=== PATIENT | female | born 1950 ===

== ENCOUNTER 2019-01-27 07:31 | Inpatient (IN) | payer MEDICARE, BC ==
--- NOTE | 2019-01-25 17:30 | Pre-op HX & Phy Repo 2 SIG ---
DATE OF ADMISSION: 01/27/2019 DATE OF ENDOSCOPY: 01/27/2019 HISTORY OF PRESENT ILLNESS: The patient is a 68-year-old female in overall good health, who has had persistent bleeding when intubating her Gibson continent ileostomy pouch. The patient has a past history of ulcerative colitis. She underwent abdominal colectomy with Simran ileostomy in 1969 and then in 1991, underwent abdominoperineal resection with creation of a Gibson continent intestinal reservoir type of continent ileostomy. She uses a 30-Yakut Medena catheter to intubate and catheterizes her pouch two to three times per day to evacuate stool and gas. She does not need to intubate at night. She has no difficulty intubating and no incontinence. Since September of 2018, she has had bleeding usually bright red from the pouch with every intubation, sometimes mixed in with stool and sometimes just some blood in the catheter or on the outside of the catheter. She has also had some prior episodes. The patient underwent upper GI endoscopy on 01/11/2019 in her home area in [place] and the stomach and duodenum were normal. 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 She is scheduled to undergo endoscopy of her Gibson continent ileostomy pouch. When she has pouchitis, she has cramps and watery output, which has been present intermittently lately. The patient had some labs on 01/20/2019 revealing hemoglobin 11.3 and BUN slightly elevated at 19. PAST MEDICAL HISTORY/MEDICATIONS: Losartan for hypertension. ALLERGIES: Sulfa. 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 See complete list at the end of this dictation. Also, she has had cosmetic surgery. PHYSICAL EXAMINATION: GENERAL: The patient is 4 feet 11 inches, 107 pounds. [place] and will be examined upon arrival and dictated separately. IMPRESSION: 1. Bleeding from Gibson continent intestinal reservoir pouch with history of pouchitis and normal upper GI endoscopy 2. History of ulcerative colitis. 3. Status post multiple abdominal operations. 3.1. Abdominal colectomy with Simran ileostomy in 1969. 3.2. Right nephrectomy in 1984. 3.3. Gibson continent intestinal reservoir continent ileostomy and abdominoperineal proctectomy in 1991. 4. Hypertension. PLAN: I have had a full discussion with the patient regarding the nature of her condition and the nature of pouch endoscopy, which does not require anesthesia or sedation. She understands and agrees to proceed. Earl Terry M.D. DR: ELSI JOB#: [id number] CC: JETT
[~2019-01-27] VITALS: Ht 149.9 cm; Wt 48.5 kg
[2019-01-27 08:21] VITALS: BP 160/91
[2019-01-27 08:34] LABS: BASOPHILS % (AUTO) 2.1 % (0.0-2.0); HEMATOCRIT 35.5 % (37.0-47.0); LYMPHOCYTES % (AUTO) 35.1 % (20.0-45.0); MEAN CORPUSCULAR VOLUME 77 FL (80-99); MONOCYTES % (AUTO) 7.2 % (1.0-10.0); NEUTROPHILS % (AUTO) 54.7 % (45.0-75.0); PLATELET COUNT 341 K/UL (150-450); RED BLOOD COUNT 4.61 M/UL (4.20-5.40); RED CELL DISTRIBUTION WIDTH 12.1 % (11.6-14.8); WHITE BLOOD COUNT 4.7 K/UL (4.8-10.8)
[2019-01-27 08:45] LABS: ANION GAP 7 mmol/L (5-15); BLOOD UREA NITROGEN 14 mg/dL (7-18); CALCIUM 9.8 MG/DL (8.5-10.1); CARBON DIOXIDE 26 MMOL/L (21-32); CHLORIDE 107 MMOL/L (98-107); CREATININE 1.2 MG/DL (0.55-1.30); POTASSIUM 4.1 MMOL/L (3.5-5.1); SODIUM 140 MMOL/L (136-145)
[2019-01-27] MEDS ORDERED: losartan PO (10:01)
[2019-01-27] MEDS ORDERED: PRILOSEC OTC20 MG ORAL (10:01)
--- NOTE | 2019-01-27 11:36 | Pre-Procedure Note/Attestation ---
Pre-Procedure Note/Attestation Complete Prior to Procedure Planned Procedure: not applicable Procedure Narrative: Gibson continent ileostomy pouch endoscopy Indications for Procedure Pre-Operative Diagnosis: Gibson continent ileostomy bleeding Attestation I attest that I discussed the nature of the procedure; its benefits; risks and complications; and alternatives (and the risks and benefits of such alternatives ), prior to the procedure, with the patient (or the patient's legal artist's representative). I attest that, if there was a reasonable possibility of needing a blood transfusion, the patient (or the patient's legal artist's representative) was given the [facility] standardized written summary, pursuant to the [place] Blood Safety Act ([place] Health and Safety Code # 1645, as amended). I attest that I re-evaluated the patient just prior to the surgery and that there has been no change in the patient's H&P, except as documented below: none Earl Terry MD January 27, 2019 11:36
[2019-01-27 12:40] VITALS: BP 145/81
--- NOTE | 2019-01-27 12:42 | Brief Operative Note ---
Immediate Post Operative Note Operative Note Pre-op Diagnosis: Gibson continent ileostomy bleeding Procedure: Gibson pouch endoscopy Post-op Diagnosis: same Findings: consistent w/pre-op dx studies, other - superficial ulcerations in pouch along old suture line Surgeon: vargas Anesthesia: other - none Specimen: none Complications: none Condition: stable Fluids: none Estimated Blood Loss: none Drains: other - 28 Fr Araiza to Gibson Pouch Implant(s) used?: No Earl Terry MD January 27, 2019 12:42
--- NOTE | 2019-01-27 12:45 | NUR ---
HEPLOCK WAS STARTED BY MARIO ROGERS RN. NO S/S OF INFILTRATION.
--- NOTE | 2019-01-27 12:47 | General Progress Note ---
Progress Note Progress Note Gibson continent ileostomy pouch endoscopy reveals superficial ulcerations along old suture line. Hgb 12.0 (was 11.3 in [place] one week ago) States that 7-8 years ago she required 3 units transfusion but no work up was done to determine source Recent EGD negative in [place] (reports in chart) Imp. GI bleeding, likely from Gibson Pouch R/O bleeding from ileum proximal to pouch (unable to visualize today) Plan: Admit Dr. Malloy to consult re possible f/u endoscopy including push enteroscopy from Gibson Pouch Maintain continuous decompression/drainage of Gibson pouch with indwelling catheter to continuous drainage f/u labs in Earl Ricci MD January 27, 2019 12:47
--- NOTE | 2019-01-27 13:50 | NUR ---
PT TRANSFERRED TO [facility]. MACIEJ SOTO RN GAVE REPORT TO JOANN SCANLON RN. VS AND CONDITION STABLE. DENIES PAIN.
--- NOTE | 2019-01-27 14:00 | NUR ---
NURSE NOTES: PATIENT RECEIVED FROM GI LAB VIA [facility]. AOX4. RIGHT ILEOSTOMY PATENT AND CONNECTED TO DRAINAGE DEVICE. NO S/S BLEEDING. ASSISTED PATIENT TO STAND TO GET INTO BED. TOLERATED WELL. NO DIZZINESS/PAIN NOTED.PATIENT ORIENTED TO ROOM. BED IN LOW AND LOCKED POSITION, CALL LIGHT WITHIN REACH. BEDSIDE REPORT AND PHONE REPORT RECEIVED FROM VIRGILIO. PERSONAL BELONGINGS REVIEWED AND SIGNED WITH TRANSFERRING NURSE. DISCUSSED PLAN OF CARE FOR THE REMAINDER OF THE DAY. QUESTIONS ANSWERED, NEEDS MET. ORDERS RECEIVED.
[2019-01-27] MEDS ORDERED: D5 1/2NS w/KCl 20mEq 1,000 ML IV SCH (16:00)
[2019-01-27] MEDS ORDERED: Magnesium Citrate Liq Btl ORAL ONE (16:00)
--- NOTE | 2019-01-27 16:50 | NUR ---
NURSE NOTES: ORIENTED PATIENT TO NURSING UNIT. AMBULATING AROUND UNIT.GAIT STEADY. DENIES PAIN/NAUSEA/BLOATING. HAS BEEN TOLERATING CLEAR LIQUIDS.
--- NOTE | 2019-01-27 17:30 | NUR ---
NURSE NOTES: PATIENT SEEN BY DR. PRATT. NEW ORDERS RECEIVED.CONSENT OBTAINED. PATIENT INFORMED OF NPO AFTER MN STATUS. VERBALIZED UNDERSTANDING.
--- NOTE | 2019-01-27 17:45 | Procedure Note ---
DATE OF PROCEDURE: 01/27/2019 ENDOSCOPY PROCEDURE REPORT: ENDOSCOPIST: Earl Terry M.D. ANESTHESIA: None. SEDATION: None. PRE-ENDOSCOPY DIAGNOSES: 1. GI bleeding, likely from Gibson continent ileostomy pouch with recent negative upper GI endoscopy. 2. History of ulcerative colitis. 3. Status post multiple abdominal operations. 3.1. Abdominal colectomy with Simran ileostomy in 1969. 3.2. Right nephrectomy for atrophy in 1984. 3.3. Gibson continent ileostomy and abdominoperineal proctectomy in 1991. POST-ENDOSCOPY DIAGNOSES: 1. GI bleeding, likely from Gibson continent ileostomy pouch with recent negative upper GI endoscopy. 2. History of ulcerative colitis. 3. Status post multiple abdominal operations. 3.1. Abdominal colectomy with Simran ileostomy in 1969. 3.2. Right nephrectomy for atrophy in 1984. 3.3. Gibson continent ileostomy and abdominoperineal proctectomy in 1991. ENDOSCOPY PERFORMED: Gibson continent ileostomy pouch endoscopy. FINDINGS: Localized superficial ulcerations along an old suture line within the pouch. Otherwise, the entire mucosa of the pouch was normal. Retroflex views revealed a circumferentially well-formed nipple valve. Due to torquing and angulation, I could not enter the proximal ileum. DESCRIPTION OF PROCEDURE: The patient was taken to the GI lab, positioned supine. Examination reveals the abdomen to be soft with a long midline scar from xiphoid to pubis and the stoma of her Gibson pouch low in the right lower quadrant with a transverse right-sided scar from prior ileostomy. There is no evidence of abdominal wall hernia. Without any sedation or anesthesia given or required, I first inserted a 28-Canadian Araiza catheter into the pouch, which required a bit of manipulation to get fully into the pouch to irrigate it clear. Then using a GIF-P140 endoscope, I measured the distance from the stoma orifice to the tip of the nipple valve as approximately 9 cm just slightly redundant. The pouch is entered and is quite distensible. The mucosa is completely normal throughout except for superficial ulcerations along an old suture line. Retroflexed views revealed a well-formed nipple valve. Withdrawal views confirmed the above findings. After the procedure, I again inserted a 28-Canadian Araiza catheter into her pouch, secured it to the skin with tape, and connected it to a gravity drainage bag for continuous decompression and observation of any ongoing bleeding. The patient will be admitted for further evaluation and workup. Earl Terry M.D. DR: AMANDA JOB#: [id number] CC: JETT
[2019-01-27] MEDS ORDERED: NS Irrig 1000ml ONE (18:43)
--- NOTE | 2019-01-27 19:29 | NUR ---
HAND-OFF: Report given to STEVE MADRIGAL.
--- NOTE | 2019-01-27 19:30 | NUR ---
NURSE NOTES: Received report from ROHAN Saenz. Patient sitting up in bed, no distress noted. Right ileostomy patent, attached to drainage bag. IV intact on R hand, infusing well, D5 1/2NS with 20 mEq potassium at 75 cc/hr. Drinking clear liquids, tolerating well. Aware of NPO status after midnight. Will continue to monitor.
[2019-01-27 20:00] VITALS: BP 163/83
[2019-01-27] MEDS: Losartan 50mg tab ORAL SCH (20:26)
--- NOTE | 2019-01-27 20:40 | NUR ---
NURSE NOTES: Patient complain of pain at IV site. Site looks intact, patent. When decreasing IV rate pain decreases and upon flushing with NS pain subsides. Communicated with charge nurse. Noted lab result, potassium 4.1. Communicated with Dr Terry regarding IVF. See new orders received. Also notified last BP 163/83, scheduled BP med was given and noted no PRN BP meds. No further orders regarding BP at this time.
--- NOTE | 2019-01-27 21:30 | Consultation ---
DATE OF CONSULTATION: 01/27/2019 NOTE: INCOMPLETE DICTATION CHIEF COMPLAINT: Gastrointestinal bleeding. HISTORY OF PRESENT ILLNESS: The patient is a very pleasant 68-year-old female with past medical history history of ulcerative colitis for over 20 years, had surgery many years ago with total colectomy. Alexx Malloy M.D. DR: David JOB#: [id number] CC:
[2019-01-27] MEDS: D5 1/2NS 1,000 ML IV SCH (22:00)
--- NOTE | 2019-01-27 22:00 | Consultation ---
DATE OF CONSULTATION: 01/27/2019 CHIEF COMPLAINT: Gastrointestinal bleeding. HISTORY OF PRESENT ILLNESS: This is a very pleasant 68-year-old female with past medical history of ulcerative colitis for over 20 years ago had total colectomy with ileostomy bag and recently had a pouch placed. She was admitted to the hospital for evaluation of bleeding, had pouchoscopy done by Dr. Earl Terry showed evidence of some ulceration at the anastomosis but not enough to explain the bleeding so GI consult was requested for evaluation for possible further endoscopy. Apparently, the patient had a recent endoscopy done in this month at another facility did not show much. PAST MEDICAL HISTORY: 1. Ulcerative colitis. 2. History of hypertension. 3. History of renal disease requiring right nephrectomy. ALLERGIES: Sulfa. MEDICATIONS: Please see medication reconciliation list. PAST SURGICAL HISTORY: Total colectomy, bilateral breast implants, right nephrectomy. REVIEW OF SYSTEMS: A 10-point review of systems was performed and pertinent positives in HPI. PHYSICAL EXAMINATION: VITAL SIGNS: Temperature is 97.6, pulse 64, respirations 20, and blood pressure is 145/81. HEENT: Normocephalic and atraumatic. Sclerae anicteric. NECK: Supple. No evidence of lymphadenopathy. CARDIOVASCULAR: Regular rate and rhythm. Plus S1 and S2. No obvious murmur. LUNGS: Clear to auscultation bilaterally. ABDOMEN: Positive bowel sounds. Soft and nontender. No rebound. No guarding. No peritoneal sign. EXTREMITIES: No cyanosis, no clubbing, no edema. LABORATORY AND DIAGNOSTIC DATA: White count is 4.7, hemoglobin 12, platelet count is 341. Chem-7, sodium 140, potassium 4.1, BUN is 14, creatinine 1.2. ASSESSMENT AND PLAN: This is a very pleasant 68-year-old female with ulcerative colitis with now bleeding in the pouch. Plan is to do pouchoscopy and ileoscopy tomorrow. The procedure was explained to the patient. The risks and benefits of anesthesia and procedure was explained to the patient, she agreed so we will plan for tomorrow. I want to thank, Dr. Earl Terry for this kind referral. Alexx Malloy M.D. DR: David JOB#: [id number] CC: Earl Terry M.D.; Fax#: [phone]
--- NOTE | 2019-01-27 22:00 | NUR ---
NURSE NOTES: Pt c/o pain at L hand IV site. At this time running D5 1/2 NS at 75 cc/hr. IV DC'd. Restarted IV on R hand, gauge #22. Patient tolerated well.
[2019-01-27] MEDS: LORazepam 1mg tab ORAL PRN (22:11)
--- NOTE | 2019-01-27 23:04 | NUR ---
NURSE NOTES: Patient asleep, respirations even and unlabored.
[2019-01-28] VITALS (13 sets, daily range): BP systolic 111–167; BP diastolic 67–91
[2019-01-28 05:41] LABS: BASOPHILS % (AUTO) 1.6 % (0.0-2.0); EOSINOPHILS % (AUTO) 0.4 % (0.0-3.0); HEMATOCRIT 35.5 % (37.0-47.0); HEMOGLOBIN 11.7 G/DL (12.0-16.0); MEAN CORPUSCULAR VOLUME 78 FL (80-99); MONOCYTES % (AUTO) 5.7 % (1.0-10.0); NEUTROPHILS % (AUTO) 54.3 % (45.0-75.0); PLATELET COUNT 333 K/UL (150-450); RED BLOOD COUNT 4.55 M/UL (4.20-5.40); RED CELL DISTRIBUTION WIDTH 12.3 % (11.6-14.8); WHITE BLOOD COUNT 4.5 K/UL (4.8-10.8)
[2019-01-28 07:01] LABS: % IRON SATURATION 29 % (15-50); IRON 92 ug/dL (50-175); TOTAL IRON BINDING CAPACITY 314 ug/dL (250-450)
[2019-01-28 07:04] LABS: ALANINE AMINOTRANSFERASE 26 U/L (12-78); ALBUMIN 3.4 G/DL (3.4-5.0); ALBUMIN/GLOBULIN RATIO 1.2 (1.0-2.7); ALKALINE PHOSPHATASE 61 U/L (46-116); ANION GAP 10 mmol/L (5-15); ASPARTATE AMINO TRANSFERASE 33 U/L (15-37); BILIRUBIN,TOTAL 0.8 MG/DL (0.2-1.0); BLOOD UREA NITROGEN 11 mg/dL (7-18); CARBON DIOXIDE 22 MMOL/L (21-32); CHLORIDE 103 MMOL/L (98-107); CREATININE 0.9 MG/DL (0.55-1.30); FERRITIN 19 NG/ML (8-388); POTASSIUM 3.9 MMOL/L (3.5-5.1); SODIUM 135 MMOL/L (136-145)
--- NOTE | 2019-01-28 07:30 | NUR ---
NURSE NOTES: Patient is in bed awake and able to verbalize needs. Patient is stable. Denies pain at this time. Ileostomy draining into bag, patent. Patient is aware of procedure scheduled today. Patient is in bed in locked and lowest position with call light within reach. Will continue to monitor.
[2019-01-28] MEDS: D5 1/2NS 1,000 ML IV SCH ×2 (10:20→13:35)
--- NOTE | 2019-01-28 10:41 | Anethesia Preoperative Eval ---
Anesthesia Pre-op PMH/ROS General Date of Evaluation: January 28, 2019 Time of Evaluation: 11:29 Anesthesiologist: Alexandre ASA Score: ASA 2 Mallampati Score Class I : Soft palate, uvula, fauces, pillars visible Class II: Soft palate, uvula, fauces visible Class III: Soft palate, base of uvula visible Class IV: Only hard plate visible Mallampati Classification: Class I Surgeon: Gama Diagnosis: bleeding in ileostomy pouch Surgical Procedure: Enteroscopy Anesthesia History: none Family History: no anesthesia problems Allergies: Coded Allergies: CODEINE (Verified Allergy, Intermediate, 01/27/19) SEVERE ABDOMINAL PAIN SULFA (SULFONAMIDE ANTIBIOTICS) (Verified Allergy, Unknown, 01/26/19) Medications: see eMAR Patient NPO?: Yes NPO Date: January 27, 2019 NPO Time: 23:00 Past Medical History Cardiovascular: Reports: HTN Pulmonary: Denies: asthma, COPD, ALYSSA, other Gastrointestinal/Genitourinary: Reports: other - ulcerative colitis Neurologic/Psychiatric: Denies: dementia, CVA, depression/anxiety, TIA, other Endocrine: Reports: other - right kidney arthopy HEENT: Denies: cataract (L), cataract (R), glaucoma, LUMBEE (L), LUMBEE (R), other Hematology/Immune: Reports: anemia Musculoskeletal/Integumentary: 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 Exam Physician Exam Last Vital Signs Date Time Temp Pulse Resp B/P (MAP) Pulse Ox O2 Delivery O2 Flow Rate FiO2 01/28/19 08:00 97.2 74 18 152/85 (107) 98 01/27/19 21:00 Room Air Constitutional: NAD Neurologic: CN 2-12 intact Cardiovascular: RRR Respiratory: CTA Gastrointestinal: S/NT/ND Airway Exam Mallampati Score: Class I MO: full ROM: full Teeth: intact - crowns Dentures: no upper, no lower Anesthesia Pre-op A/P Labs Hematology Test 01/28/19 05:04 White Blood Count 4.5 K/UL (4.8-10.8) L Red Blood Count 4.55 M/UL (4.20-5.40) Hemoglobin 11.7 G/DL (12.0-16.0) L Hematocrit 35.5 % (37.0-47.0) L Mean Corpuscular Volume 78 FL (80-99) L Mean Corpuscular Hemoglobin 25.7 PG (27.0-31.0) L Mean Corpuscular Hemoglobin Concent 33.0 G/DL (32.0-36.0) Red Cell Distribution Width 12.3 % (11.6-14.8) Platelet Count 333 K/UL (150-450) Mean Platelet Volume 5.8 FL (6.5-10.1) L Neutrophils (%) (Auto) 54.3 % (45.0-75.0) Lymphocytes (%) (Auto) 38.0 % (20.0-45.0) Monocytes (%) (Auto) 5.7 % (1.0-10.0) Eosinophils (%) (Auto) 0.4 % (0.0-3.0) Basophils (%) (Auto) 1.6 % (0.0-2.0) Chemistry Test 01/28/19 05:04 Sodium Level 135 MMOL/L (136-145) L Potassium Level 3.9 MMOL/L (3.5-5.1) Chloride Level 103 MMOL/L (98-107) Carbon Dioxide Level 22 MMOL/L (21-32) Anion Gap 10 mmol/L (5-15) Blood Urea Nitrogen 11 mg/dL (7-18) Creatinine 0.9 MG/DL (0.55-1.30) Estimat Glomerular Filtration Rate > 60 mL/min (>60) Glucose Level 105 MG/DL (74-106) Calcium Level 9.0 MG/DL (8.5-10.1) Iron Level 92 ug/dL (50-175) Total Iron Binding Capacity 314 ug/dL (250-450) Percent Iron Saturation 29 % (15-50) Unsaturated Iron Binding 222 ug/dL (112-346) Ferritin 19 NG/ML (8-388) Total Bilirubin 0.8 MG/DL (0.2-1.0) Aspartate Amino Transf (AST/SGOT) 33 U/L (15-37) Alanine Aminotransferase (ALT/SGPT) 26 U/L (12-78) Alkaline Phosphatase 61 U/L (46-116) Total Protein 6.2 G/DL (6.4-8.2) L Albumin 3.4 G/DL (3.4-5.0) Globulin 2.8 g/dL Albumin/Globulin Ratio 1.2 (1.0-2.7) Vitamin B12 Level 320 PG/ML (193-986) Folate 48.7 NG/ML (8.6-58.9) Studies Pre-op Studies: EKG Risk Assessment & Plan Assessment: A&Ox4 Plan: MAC Status Change Before Surgery: No Pre-Antibiotics Given Within 1 Hr of Incision: No Tessa Schroeder CRNA January 28, 2019 10:41
--- NOTE | 2019-01-28 10:42 | Immediate Post-Op Evaluation ---
Immediate Post-Op Evalulation Immediate Post-Op Evalulation Procedure: Enteroscopy via pouch Date of Evaluation: January 28, 2019 Time of Evaluation: 12:10 IV Fluids: NSS 400 ml Blood Products: 0 Estimated Blood Loss: 0 Urinary Output: 0 Blood Pressure Systolic: 145 Blood Pressure Diastolic: 91 Pulse Rate: 67 Respiratory Rate: 18 O2 Sat by Pulse Oximetry: 99 Temperature (Fahrenheit): 97.9 Pain Score (1-10): 5 Nausea: No Vomiting: No Complications none pt complain of 5/10 abdominal gas pain. pain medication ordered and Dr. Malloy notified and will assess patient. Patient Status: awake, reacts, patent, none Hydration Status: adequate Given Within 1 Hr of Incision: No - none per surgeon Tessa Schroeder CRNA January 28, 2019 10:42
[2019-01-28] MEDS ORDERED: Midazolam 2mg/2ml Inj ONE (11:06)
--- NOTE | 2019-01-28 11:15 | NUR ---
NURSE NOTES: Taken downstairs to GI lab via nicole.
--- NOTE | 2019-01-28 11:18 | NUR ---
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
[2019-01-28] MEDS ORDERED: Propofol 200mg/20ml IV ONE (11:30)
--- NOTE | 2019-01-28 11:34 | 48 Hour Post Anesthesia Eval ---
Post Anesthesia Evaluation Procedure: Enteroscopy Date of Evaluation: January 28, 2019 Time of Evaluation: 13:12 Blood Pressure Systolic: 166 0: 84 Pulse Rate: 66 Respiratory Rate: 16 Temperature (Fahrenheit): 97.9 O2 Sat by Pulse Oximetry: 99 Airway: patent Nausea: No Vomiting: No Pain Intensity: 2 Hydration Status: adequate Cardiopulmonary Status: WNL Mental Status/LOC: patient returned to baseline Follow-up care needed: patient intructions given Tessa Schroeder CRNA January 28, 2019 11:34
[2019-01-28] MEDS ORDERED: NS 500ML IVPB ONE (11:35)
--- NOTE | 2019-01-28 11:40 | Pre-Procedure Note/Attestation ---
Pre-Procedure Note/Attestation Complete Prior to Procedure Planned Procedure: not applicable Procedure Narrative: ileoscopy Indications for Procedure Pre-Operative Diagnosis: gib Attestation I attest that I discussed the nature of the procedure; its benefits; risks and complications; and alternatives (and the risks and benefits of such alternatives ), prior to the procedure, with the patient (or the patient's legal medical office representative). I attest that, if there was a reasonable possibility of needing a blood transfusion, the patient (or the patient's legal medical office representative) was given the [facility] standardized written summary, pursuant to the [place] Blood Safety Act ([place] Health and Safety Code # 1645, as amended). I attest that I re-evaluated the patient just prior to the surgery and that there has been no change in the patient's H&P, except as documented below: Alexx Malloy MD January 28, 2019 11:40
--- NOTE | 2019-01-28 12:19 | Endoscopy Procedure Note ---
Endoscopy Procedure Note General Indication for Procedure: gib Procedures Performed: other - enteroscopy Operative Findings/Diagnosis: min bleeding at suture site Specimen: yes Pt Tolerated Procedure Well: Yes Estimated Blood Loss: none Anesthesia Anesthesiologist: kris Anesthesia: MAC Inserted Devices Implant(s) used?: No GI Core Measures 50 yrs or older w/o bx or poly: Not Applicable 10yrs. F/U recommended: Not Applicable Alexx Malloy MD January 28, 2019 12:19
[2019-01-28] MEDS ORDERED: fentaNYL 100 mcg/2 mL IV PRN (12:30)
--- NOTE | 2019-01-28 12:45 | NUR ---
NURSE NOTES: Spoke with Dr.M. Malloy regarding abdominal distension status post enteroscopy. Patient is in no acute distress, only concerned regarding the distension. Patient advised to ambulate and irrigate the pouch to see if this alleviates the discomfort. No new orders received from Dr. Malloy. Discomfort level is tolerable. Drainage sargent position was verified by GI, RN Iftikhar Murguia. Will continue to monitor patient.
--- NOTE | 2019-01-28 13:05 | NUR ---
NURSE NOTES: Patient arrived on unit. Assisted to bed without incident. Stable. Complains of abdominal pain, will encourage ambulation and flush ileo as ordered. Patient encouraged to use call light for assistance, verbalized understanding. Will continue to monitor.
--- NOTE | 2019-01-28 13:30 | NUR ---
NURSE NOTES: Patient had an accident on the floor on the way to the restroom. Unable to measure urine output at this time. All safety measures provided.
--- NOTE | 2019-01-28 13:44 | General Progress Note ---
Progress Note Progress Note AVSS Underwent endosopy up to 85cm proximal to BCIR pouch by Dr. Malloy - no abnormalities BCIR ileo catheter repositioned and flushed evacuating air and some old blood WBC 4500 Hgb 11.7 BUN 11 Cr 0.9 Albumin 3.4 Iron 92 (50-175) Ferritin 19 (8-388) B12 320 (193-986) Folate 48.7 Imp.GI bleeding due to localized ulcerations in Gibson continent ileostomy pouch, but no diffuse pouchitis Plan; Mesalamine 60cc flush into Gibson Pouch qhs starting tonight Continue IV fluids tonight f/u labs in AM BCIR low residue diet Start self-intubations of Gibson pouch in AM Venofer and B12 replacement Earl Terry MD January 28, 2019 13:44
[2019-01-28] MEDS ORDERED: Vitamin B12 1000mcg/ml Inj IM SCH (13:45)
--- NOTE | 2019-01-28 19:27 | NUR ---
HAND-OFF: Report given to Tono MADRIGAL. Patient is stable.
--- NOTE | 2019-01-28 19:45 | NUR ---
NURSE NOTES: Patient ambulating in the hallway. No signs of pain or bleeding noted. Dressing is dry and intact. IV site flushed. Ileo flushed per MD's order. No signs of distress noted. Needs attended. In stable condition.
--- NOTE | 2019-01-28 20:15 | Procedure Note ---
DATE OF PROCEDURE: 01/28/2019 SURGEON: Alexx Malloy M.D. PROCEDURE: Enteroscopy using to the ileostomy pouch. ANESTHESIA: Per Alexandre SINGH. INSTRUMENT: Olympus pediatric colonoscope. INDICATION: Gastrointestinal bleeding. REASON FOR PROCEDURE: The procedure, risks, benefits, and possible consequences, including hemorrhage, aspiration, perforation and infection, and alternative treatments, were explained to the patient/legal guardian by Dr. Alexx Malloy and the patient/legal guardian understood and accepted these risks. PROCEDURE IN DETAIL: After informed consent was obtained and the patient was adequately sedated, colonoscope was introduced through the ileoscopy opening into the ileoscopy pouch. There was evidence of bleeding at the suture line minimum. Then, the scope was advanced all the way to about 85 cm in the scope. No blood was seen. No no any other obvious source of bleeding was seen and the scope was gradually retrieved. The patient tolerated the procedure well without any complication. SUMMARY OF FINDINGS: Minimum bleeding at the suture line in the pouch. Otherwise, normal small bowel up to about 85 cm from the opening. RECOMMENDATIONS: Follow laboratories. Follow with a surgical recommendation regarding oozing from the surgical site. Repeat CBC for tomorrow. I want to thank, Dr. Earl Terry , for this kind referral. Alexx Malloy M.D. DR: JESSICA JOB#: [id number] CC: Earl Terry M.D.; Fax#: [phone]
--- NOTE | 2019-01-28 21:00 | NUR ---
NURSE NOTES: Administered Rowasa in patients Ileo catheter then plugged for one hour. Able to tolerate procedure well. Ileo flushing resumed as ordered. No signs of distress noted.
[2019-01-28] MEDS: Iron Sucrose 100 MG in NS 55 ML IV SCH (21:11)
[2019-01-28] MEDS: Losartan 50mg tab ORAL SCH (21:11)
[2019-01-28] MEDS: Mesalamine Enema 4gm/60ml RECTAL SCH (21:11)
[2019-01-28] MEDS: LORazepam 1mg tab ORAL PRN (23:04)
[2019-01-29] VITALS: BP 133/73
[2019-01-29 04:00] VITALS: BP 147/83
[2019-01-29 07:19] LABS: BASOPHILS % (AUTO) 1.5 % (0.0-2.0); EOSINOPHILS % (AUTO) 2.2 % (0.0-3.0); HEMATOCRIT 36.6 % (37.0-47.0); MEAN CORPUSCULAR VOLUME 78 FL (80-99); MONOCYTES % (AUTO) 9.6 % (1.0-10.0); NEUTROPHILS % (AUTO) 68.7 % (45.0-75.0); PLATELET COUNT 263 K/UL (150-450); RED CELL DISTRIBUTION WIDTH 12.1 % (11.6-14.8); WHITE BLOOD COUNT 4.7 K/UL (4.8-10.8)
--- NOTE | 2019-01-29 07:30 | NUR ---
NURSE NOTES: Received report from Tono MADRIGAL. Patient is awake alert and oriented x4, no acute distress noted, ambulating in room with steady gait during rounds. Ileo to gravity drainage, brownish-green output noted. Patient reporting no pain at this time. IV locked and asymptomatic. Patient updated on plan of care. Will continue to monitor.
[2019-01-29 07:58] LABS: ANION GAP 8 mmol/L (5-15); BLOOD UREA NITROGEN 14 mg/dL (7-18); CALCIUM 9.3 MG/DL (8.5-10.1); CARBON DIOXIDE 24 MMOL/L (21-32); CHLORIDE 107 MMOL/L (98-107); CREATININE 1.1 MG/DL (0.55-1.30); SODIUM 139 MMOL/L (136-145)
[2019-01-29 08:00] VITALS: BP 162/92
--- NOTE | 2019-01-29 09:22 | NUR ---
NURSE NOTES: Removed ileo catheter per MD order. Noted catheter had slipped out, patient unsure of what time catheter slipped out. Dr. Terry informed and aware, stated to educate patient to inform RN when she feels she needs to intubate. Patient educated. Will continue to monitor.
--- NOTE | 2019-01-29 09:24 | General Progress Note ---
Progress Note Progress Note [facility] Was able to eat well following push enteroscopy via Gibson continent ileostomy pouch. Received mesalamine into Gibson pouch last night - tolerated well Not bleeding overnight Abdomen soft Urine 1850 BCIR ileo 1080 WBC 4700 Hgb 12 stable BMP-ok Imp. Improved Plan: RN supervised Gibson pouch self-intubations q4h am to hs and prn Mesalamine into pouch qhs - patient instructed Rx Rowasa rectal enema suspension #28 use qhs f/u with me 1 week anticipate discharge in AM if tolerates self-intubations and no further bleeding Earl Terry MD January 29, 2019 09:24
[2019-01-29] MEDS ORDERED: LOSARTAN POTASS50 MG ORAL (09:27)
[2019-01-29 12:00] VITALS: BP 154/97
--- NOTE | 2019-01-29 13:00 | NUR ---
NURSE NOTES: Patient had successful first self intubation. 200mL of effluent out, effluent is dark brown with rust colored streaking. No bright red blood or clots noted in effluent or catheter. Will continue to monitor.
[2019-01-29 16:00] VITALS: BP 145/88
[2019-01-29] MEDS ORDERED: D5 1/2NS 1000ml IV ONE (16:48)
[2019-01-29] MEDS ORDERED: NS 275ml ONE (16:48)
[2019-01-29] MEDS ORDERED: NS Irrig 1000ml ONE (16:48)
[2019-01-29] MEDS ORDERED: Tubing IV Secondary IV ONE (16:48)
--- NOTE | 2019-01-29 18:45 | NUR ---
NURSE NOTES: Patient provided with discharge supplies per MD order.
--- NOTE | 2019-01-29 18:46 | NUR ---
NURSE NOTES: Total ileo output for my shift: +255mL, output is dark brown with rust colored streaks, MD is aware. Total urine output: 1000mL Patient tolerated diet well, ambulated several times. Patient is proficient with self intubation.
--- NOTE | 2019-01-29 19:30 | NUR ---
NURSE NOTES: Received report from ROHAN Merlos. Patient alert, oriented x4. Sitting up in chair. IV intact in R hand. Bed in low position, locked, side rails up x2. Call light within reach. Will continue to monitor.
--- NOTE | 2019-01-29 19:37 | NUR ---
HAND-OFF: Report given to Kaila MADRIGAL. Patient is in stable condition.
[2019-01-29 20:00] VITALS: BP 143/78
[2019-01-29] MEDS: Mesalamine Enema 4gm/60ml RECTAL SCH (21:49)
[2019-01-29] MEDS: Iron Sucrose 100 MG in NS 55 ML IV SCH (21:49)
[2019-01-29] MEDS: Losartan 50mg tab ORAL SCH (21:50)
--- NOTE | 2019-01-29 22:20 | General Progress Note ---
Assessment/Plan Assessment/Plan: Assessment - UC, s/p colectomy and colostomy - s/p ulceration at anastomosis Recommend conservative Rx po diet follow pouch output Subjective Allergies: Coded Allergies: CODEINE (Verified Allergy, Intermediate, 01/27/19) SEVERE ABDOMINAL PAIN SULFA (SULFONAMIDE ANTIBIOTICS) (Verified Allergy, Unknown, 01/26/19) Subjective Feels OK no abdominal symptoms Objective Last 24 Hour Vital Signs Date Time Temp Pulse Resp B/P (MAP) Pulse Ox O2 Delivery O2 Flow Rate FiO2 01/29/19 21:50 144/72 01/29/19 16:00 98.4 72 15 145/88 (107) 99 01/29/19 12:00 98.1 88 15 154/97 (116) 99 01/29/19 09:00 Room Air 01/29/19 08:00 97.8 83 16 162/92 (115) 99 01/29/19 04:00 98.1 71 18 147/83 (104) 97 01/29/19 00:00 97.8 68 18 133/73 (93) 96 Intake and Output 01/28/19 01/29/19 19:00 07:00 Intake Total 950 ml 560 ml Output Total 0 ml 2930 ml Balance 950 ml -2370 ml Intake Oral 440 ml IV Total 950 ml Other 120 ml Output Urine Total 1850 ml Estimated Blood Loss 0 ml Other 1080 ml Laboratory Tests 01/29/19 06:55: White Blood Count 4.7L, Red Blood Count 4.70, Hemoglobin 12.0, Hematocrit 36.6L , Mean Corpuscular Volume 78L, Mean Corpuscular Hemoglobin 25.5L, Mean Corpuscular Hemoglobin Concent 32.8, Red Cell Distribution Width 12.1, Platelet Count 263, Mean Platelet Volume 7.0, Neutrophils (%) (Auto) 68.7, Lymphocytes (% ) (Auto) 18.0L, Monocytes (%) (Auto) 9.6, Eosinophils (%) (Auto) 2.2, Basophils (%) (Auto) 1.5, Sodium Level 139, Potassium Level 4.0, Chloride Level 107, Carbon Dioxide Level 24, Anion Gap 8, Blood Urea Nitrogen 14, Creatinine 1.1, Estimat Glomerular Filtration Rate 49.3, Glucose Level 113H, Calcium Level 9.3 Height (Feet): 4 Height (Inches): 11.00 Weight (Pounds): 107 Objective WDWN NCAT supple CTA RR Abdo soft, (+) ostomy no edema Pia Alejo MD January 29, 2019 22:20
[2019-01-30] VITALS: BP 144/77
--- NOTE | 2019-01-30 03:49 | NUR ---
NURSE NOTES: Patient sleeping.
[2019-01-30 04:00] VITALS: BP 135/70
--- NOTE | 2019-01-30 04:45 | NUR ---
NURSE NOTES: Reviewed discharge instructions with patient.
--- NOTE | 2019-01-30 07:15 | NUR ---
NURSE NOTES: Discharge instructions given and signed. Patient has supplies as requested: irrigation tray, 28 Araiza 5 cc balloon, catheter plug. IV discontinued. Eating breakfast.
--- NOTE | 2019-01-30 07:30 | NUR ---
NURSE NOTES:BEDSIDE ROUNDS DONE WITH NIGHT RN(STEVE).PATIENT SITTING IN CHAIR ALL DRESSED UP AND READY FOR D/C.IN GOOD SPIRIT.NO C/O PAIN.HEPLOCK TAKEN OUT BY NIGHT RN.
--- NOTE | 2019-01-30 07:30 | NUR ---
HAND-OFF: Report given to ROHAN Oh.
[2019-01-30 08:00] VITALS: BP 125/77
--- NOTE | 2019-01-30 08:15 | NUR ---
NURSE NOTES:WHEELED DOWN TO LOBBY BY WHEELCHAIR,ACCONPANIED BY VIVIAN DENNY.PATIENT STABLE ON D/C.BY SHUTTLE BUS.
--- NOTE | 2019-01-31 08:54 | Discharge Summary ---
Discharge Summary Hospital Course Date of Admission January 27, 2019 at 12:57 Date of Discharge January 30, 2019 at 08:15 Admitting Diagnosis Gibson continent ileostomy bleeding Reason for Hospitalization: Elective procedure/continent ileostomy pouch endoscopy KATIE Mckeon is a 68 year old female who was admitted on January 27, 2019 at 12:57 for [place] Continent Ileostomy Bleeding 68-year-old female in overall good health, has had persistent bleeding when intubating her Gibson continent ileostomy pouch. The patient with past history of ulcerative colitis, underwent abdominal colectomy with Simran ileostomy in 1969 and then in 1991, underwent abdominoperineal resection with creation of a Gibson continent intestinal reservoir type of continent ileostomy. She uses a 30-Persian Medena catheter to intubate and catheterizes her pouch two to three times per day to evacuate stool and gas. She does not need to intubate at night. She has no difficulty intubating and no incontinence. Since September of 2017, she has had bleeding , usually bright red from the pouch with every intubation, sometimes mixed in with stool and sometimes just some blood in the catheter or on the outside of the catheter. The patient underwent upper GI endoscopy on 01/11/2019 in her home area in [place] , and the stomach and duodenum were normal. 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 However, recently, she has had no benefit from Flagyl. She was scheduled to undergo endoscopy of her Gibson continent ileostomy pouch. When she has pouchitis, patient has cramps and watery output, which has been present intermittently lately. Patient admitted for elective procedure. Consultations dr Malloy - GI Procedures s/p 01/27/[address] Harrison Gibson continent ileostomy pouch endoscopy. Hospital Course s/p Gibson continent ileostomy pouch endoscopy 01/27/19 , which revealed superficial ulcerations along old suture line Recent EGD negative in [place] (reports in chart) GI bleeding, was likely from Gibson Pouch; R/O bleeding from ileum proximal to pouch (unable to visualize during procedure) Patient started on IVF Hemoglobin and hematocrit were closely monitored. GI consulted re possible f/u endoscopy, including push enteroscopy from Gibson Pouch Continuous decompression/drainage of Gibson pouch with indwelling catheter to continuous drainage was maintained on patient undergone enteroscopy to the ileostomy pouch; minimal bleeding under suture line in the pouch , otherwise normal small bowel up to about 85 cm from the opening BCIR ileo catheter repositioned and flushed, evacuating air and some old blood Hemoglobin 11.7, ferritin 19, iron 92, B12 320, folate 48 Venofer and B12 replacement provided GI bleeding was likely due to localized ulcerations in Gibson continent ileostomy pouch, but no diffuse pouchitis Started on Mesalamine 60cc flush into Gibson Pouch qhs IVF continued Started on BCIR low residue diet as tolerated Self-intubations of Gibson pouch started on 01/29/19 patient was able to eat well, following push enteroscopy via Gibson continent ileostomy pouch Patient tolerated mesalamine flush well Abdomen soft Intake and output were closely monitored Hemoglobin 12 , hematocrit 36.6 , no leukocytosis RN supervised Gibson pouch self-intubations q4h am to hs and prn started Mesalamine into pouch qhs - continued, patient instructed Prescription for Rowasa rectal enema suspension #28 use qhs provided Dc instructions and supplies provided Patient was stable for discharge: tolerated self intubation, no further bleeding , stable hemoglobin , no pain Outpatient f/up with surgeon in 1 week as advised by surgeon FINAL DIAGNOSES 1. 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 2. History of ulcerative colitis. 3. Status post multiple abdominal operations. 3.1. Abdominal colectomy with Simran ileostomy in 1969. 3.2. Right nephrectomy in 1984. 3.3. Gibson continent intestinal reservoir continent ileostomy and abdominoperineal proctectomy in 1991. 4. Hypertension 5. s/p Gibson continent ileostomy pouch endoscopy 6. s/p enteroscopy Discharge Medications Continued Medications: Losartan Potassium* (Losartan Potassium*) 50 Mg Tablet 100 MG ORAL HS, TAB (This prescription has been renewed) Omeprazole Magnesium (Prilosec Otc) 20 Mg Tablet.dr 20 MG ORAL DAILY, TAB (This prescription has been renewed) Discharge Condition Upon Discharge: stable Discharge Disposition Patient was discharged home Discharge Instructions Discharge Instructions Special Instructions I have been assigned to complete a D/C Summary on this account. I was not involved in the patient management Yumi Peralta NP January 31, 2019 08:54
== END 2019-01-30 08:15 | disposition home or self-care (01) | DRG 394 ==
LOC: GAS 07:31 → 3E 12:57
PROC: 0DJD8ZZ Inspection of Lower Intestinal Tract, Via Natural or Artificial Opening Endoscopic (ICD-10-PCS; principal; 2019-01-27 12:05)
DX: K94.11 Enterostomy hemorrhage (principal); K63.3 Ulcer of intestine; K91.858 Other complications of intestinal pouch; Y83.3 Surgical operation with formation of external stoma as the cause of abnormal reaction of the patient, or of later complication, without mention of misadventure at the time of the procedure; Z87.19 Personal history of other diseases of the digestive system; I10 Essential (primary) hypertension; Z90.49 Acquired absence of other specified parts of digestive tract; Z90.5 Acquired absence of kidney
CPT/HCPCS: 36415; 80048; 80053; 82607; 82728; 82746; 83540; 83550; 85025; 94003; 94150; J2250